=== PATIENT | male | born 1970 | race Asian ===

== ENCOUNTER 2019-10-26 17:13 | Outpatient (CLI) | payer BC ==
--- NOTE | 2019-10-26 17:57 | RAD ---
EXAM: RIGHT ELBOW FOUR VIEWS: History: Injury to right elbow. FINDINGS: Small olecranon triceps enthesophyte. Minimal degenerative and osteoarthrosis change. No acute fractu re or dislocation. No abnormal joint effusion. IMPRESSION: Mild degenerative and osteoarthrosis change. No acute fracture or dislocation. POS: RRE
== END 2019-10-26 17:14 | disposition home or self-care (01) ==
LOC: SCSRAD 17:13
PROVIDERS: ATTEND Family Medicine
DX: M25.521 Pain in right elbow (principal); M19.021 Primary osteoarthritis, right elbow